=== PATIENT | male | born 1985 | race Two or more races ===

== ENCOUNTER 2017-08-11 20:29 | Emergency (ER) | payer OTHER ==
[2017-08-11 20:39] VITALS: BP 138/76; PULSE 98; TEMP 98.5; BMI 26.4
--- NOTE | 2017-08-11 20:39 | PDOC ---
Rapid Medical Evaluation Time Seen by Provider: 08/11/17 20:34 Medical Evaluation: 08/11/17 20:34 I have performed a brief in-person evaluation of this patient. The patient presents with a chief complaint of: headache, subjective fever, runny nose, sneezing x 3 days, denies cough, took tylenol this morning. denies vomiting/diarrhea. son has flu Pertinent physical exam findings: lungs ctab I have ordered the following: flu swab The patient will proceed to the ED for further evaluation. Discharge Disposition - Diagnosis Flu-like symptoms - Referrals - Patient Instructions - Post Discharge Activity
--- NOTE | 2017-08-11 21:57 | PDOC ---
History of Present Illness - General Chief Complaint: Cold Symptoms Stated Complaint: FLU LIKE SYMPTOMS Time Seen by Provider: 08/11/17 20:34 History Source: Patient Exam Limitations: No Limitations - History of Present Illness Initial Comments: 08/11/17 21:53 Patient is here with complaints of cough, fever, body aches and chills. and son both diagnosed with influenza this week. Timing/Duration: reports: getting worse Severity: reports: mild, moderate Associated Symptoms: reports: chest pain/soreness, cough, facial pain, fever/ chills, nasal drainage, sore throat Past History - Travel Traveled outside of the country in the last 30 days: No Close contact w/someone who was outside of country & ill: No - Past Medical History Allergies/Adverse Reactions: Allergies Allergy/AdvReac Type Severity Reaction Status Date / Time No Known Allergies Allergy Verified 08/11/17 20:36 Home Medications: Ambulatory Orders Oseltamivir Phosphate [Tamiflu -] 75 mg PO BID #10 capsule 08/11/17 - Suicide/Smoking/Psychosocial Hx Smoking History: Never smoked Review of Systems - Review of Systems Able to Perform ROS?: Yes Is the patient limited [place] proficient: Yes Constitutional: Yes: Symptoms Reported, See HPI, Fever, Loss of Appetite, Malaise HEENTM: Yes: Symptoms Reported, Nose Congestion, Difficulty Swallowing, Mouth Swelling Respiratory: Yes: Symptoms reported, See HPI, Cough. No: Wheezing ABD/GI: Yes: See HPI Musculoskeletal: Yes: Symptoms Reported, See HPI Integumentary: Yes: Symptoms Reported, See HPI All Other Systems: Reviewed and Negative *Physical Exam - Vital Signs Last Vital Signs Temp Pulse Resp BP Pulse Ox 98.5 F 98 H 16 138/76 99 08/11/17 20:37 08/11/17 20:37 08/11/17 20:37 08/11/17 20:37 08/11/17 20:37 - Physical Exam General Appearance: Yes: Nourished, Appropriately Dressed, Apparent Distress HEENT: positive: BEN, Normal ENT Inspection, TMs Normal, Pharyngeal Erythema, Nasal Congestion, Rhinorrhea, Sinus Tenderness. negative: Pharynx Normal Respiratory/Chest: positive: Lungs Clear (course) Cardiovascular: positive: Regular Rate Gastrointestinal/Abdominal: positive: Soft. 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, Fully Oriented, Alert, Normal Mood/ Affect, Normal Response, Motor Strength 11/05 ED Treatment Course - ADDITIONAL ORDERS Additional order review: 08/11/17 20:42 Influenza Types A,B Antigen (DARIANA) - Preliminary Nasopharyngeal Swab - Preliminary Progress Note - Progress Note Progress Note: Influenzal a positive, we will treat with Tamiflu *DC/Admit/Observation/Transfer Diagnosis at time of Disposition: Influenza A - Discharge Dispostion Disposition: HOME Condition at time of disposition: Stable Admit: No - Referrals - Patient Instructions Printed Discharge Instructions: DI for Influenza -- Adult Additional Instructions: Rest, drink lots of fluids: Teas, water, soups, Pedialyte Saltwater gargles Steamy showers/seem to face break up mucus Old-fashioned treatments help! Avoid contact with others until fevers and cough resolved as this is very contagious Lots of handwashing and good hygiene Continue [id number] medications for symptomatic relief Tylenol or Motrin for fever and pain Take all of Tamiflu as directed: 1 tab every 12 hours for 5 days Followup with private physician in one to 2 days as needed or if worsening Return to emergency department for worsened symptoms, fevers, dehydration Influenza takes between 5 and 7 days for resolution To not participate in any activity, work, or school until fevers and cough are gone for at least one day - Post Discharge Activity Forms/Work/School Notes: Back to Work
== END 2017-08-11 21:58 | disposition home or self-care (01) ==
LOC: JER 20:29 → JERFT 20:29
DX: J09.X2 Influenza due to identified novel influenza A virus with other respiratory manifestations (principal)
CPT/HCPCS: 87804; 99281-25

== ENCOUNTER 2020-10-29 18:27 | Emergency (ER) | payer OTHER ==
[2020-10-29 18:44] VITALS: BP 128/78; PULSE 66; TEMP 98.4; BMI 27.2
[2020-10-29] MEDS ORDERED: KETOROLAC TROMETHAMINE 60 MG/2 ML VIAL IM ONE (18:47)
[2020-10-29] MEDS ORDERED: KETOROLAC TROMETHAMINE 60 MG/2 ML VIAL ONE (18:50)
== END 2020-10-29 19:01 | disposition home or self-care (01) ==
LOC: JERFT 18:27
PROC: 3E0233Z Introduction of Anti-inflammatory into Muscle, Percutaneous Approach (ICD-10-PCS; principal; 2020-10-29)
DX: M25.511 Pain in right shoulder (principal)
CPT/HCPCS: 99284-25

== ENCOUNTER 2021-04-18 23:44 | Emergency (ER) | payer OTHER ==
[2021-04-18 23:58] VITALS: BP 117/71; PULSE 67; TEMP 97.7; BMI 29.7
[2021-04-19 01:32] LABS: BASO % 1.3 % (0-2.0); EOS % 1.1 % (0-4.5); HEMATOCRIT 43.6 % (35.4-49); HEMOGLOBIN 15.2 GM/dL (11.7-16.9); LYMPH % 38.3 % (8-40); MCH 30.3 pg (25.7-33.7); MCHC 34.9 g/dl (32.0-35.9); MEAN CELL VOLUME 86.8 fl (80-96); MEAN PLT VOLUME 8.2 fl (7.5-11.1); MONO % 9.2 % (3.8-10.2); NEUT % 50.1 % (42.8-82.8); PLATELET COUNT 315 10^3/uL (134-434); RBC 5.02 M/mm3 (4.00-5.60); WHITE BLOOD COUNT 10.2 K/mm3 (4.0-10.0)
[2021-04-19 01:44] LABS: PROTHROMBIN TIME (PATIENT) 11.7 SEC (9.7-13.0)
[2021-04-19 01:49] LABS: CHLORIDE 107 mmol/L (98-107); SODIUM 140 mmol/L (136-145)
[2021-04-19 01:50] LABS: CALCIUM 8.4 mg/dL (8.5-10.1)
[2021-04-19 01:52] LABS: ALBUMIN 3.7 g/dl (3.4-5.0); ANION GAP 8 MMOL/L (8-16); BLOOD UREA NITROGEN 17.4 mg/dL (7-18); CO2 25 mmol/L (21-32); GLUCOSE,RANDOM 109 mg/dL (74-106)
[2021-04-19 01:55] LABS: SGOT/AST 38 U/L (15-37); SGPT/ALT 61 U/L (13-61)
[2021-04-19 01:56] LABS: BILIRUBIN,TOTAL 0.3 mg/dL (0.2-1)
[2021-04-19 01:58] LABS: ALK PHOS 90 U/L (45-117)
== END 2021-04-19 02:39 | disposition home or self-care (01) ==
LOC: JER 23:44
DX: R07.9 Chest pain, unspecified (principal)
CPT/HCPCS: 36415; 71046-TC-FY; 80053; 82550; 84484; 85025; 85610; 93005; 93010; 99285-25